=== PATIENT | female | born 1960 | race Caucasian/White ===

== ENCOUNTER 2017-06-23 18:58 | Inpatient (IN) | payer BC ==
[~2017-06-23] VITALS: Ht 170.2 cm; Wt 114.2 kg
--- NOTE | ~2017-06-23 | EC ---
PATIENT:CAMILA ADAN DATE OF SERVICE: 06/23/17 SEX: F MEDICAL RECORD: [id number] DATE OF : 56 LOCATION:[facility] AGE OF PATIENT: 57 ADMISSION DATE: 06/23/17 REFERRING PHYSICIAN: INTERPRETING PHYSICIAN: NIECY MEDINA MD ECHOCARDIOGRAM REPORT ECHO CHARGES 4 ECHO COMPLETE CLINICAL DIAGNOSIS: EDEMA/MORRELL ECHOCARDIOGRAPHIC MEASUREMENTS (adult normal given) AC root (d.<3.7cm) 3.7 cm LV Septum d (<1.2 cm> 1.7 cm Valve Excursion 2.1 cm LV Septum (systole) 1.8 cm Left Atria (s.<4.0cm> 4.0 cm LVPW d(<1.2cm) 1.6 cm RV (d.<2.3cm) 3.8 cm LVPW (sytole) 2.0 cm LV diastole(<5.6CM) 5.3 cm MV E-F(>70mm/sec) cm LV systole 3.5 cm LVOT Diameter 2.0 cm MV exc.(>10mm) 1.6 cm Est.ejection fraction (50-75%) % Pericardial Effusion N DOPPLER: LVIT cm/sec A 113 cm/sec E 145 cm/sec LA cm/sec RVSP 43 mmHg LVOT 161 cm/sec AOP1/2T m/s Asc. Ao 169 cm/sec RVOT 94 cm/sec RA cm/sec PA 136 cm/sec AV Gradient Peak 11.43mmHg AV Mean 7.38 mmHg AV Area 3.3 cm MV Gradient Peak 11.46mmHg MV Mean 4.12 mmHg MV Area cm COMMENTS: Rink Rat: 2 KEITH GILL Manager Emergency Department: 3 Dr. Kirby TAPE# PACS DATE OF SERVICE: 06/25/2017 Adequate 2D echo, color flow and spectral Doppler, M-Mode. Mild LVH. LV internal dimension is normal. Wall motion is normal. EF is greater than 55%. Aortic valve is tricuspid without evidence of stenosis on Doppler interrogation. Left atrium upper limits of normal at 4.0 cm. Mitral valve shows no prolapse. Mild MR. Right-sided chamber size is grossly normal. Mild TR. RV systolic pressure is elevated at 43, estimated at 43 mmHg via the continuity equation. TRANSINT:[id number] Voice Confirmation ID: [id number] DOCUMENT ID: [id number] ECHOCARDIOGRAM REPORT [id number] CAMILA ADAN,NIECY Mena MD at 1318 CC: [id number] DICTATION DATE: 06/25/171421 SUPERVISOR PAINTING: 06/25/17 1451 ADM IN [facility] [address] [place] [address]
--- NOTE | ~2017-06-23 | CN ---
PATIENT NAME:CAMILA ADAN MEDICAL RECORD: [id number] : 56 LOCATION:[facility]2306 ADMIT DATE: 06/23/17 ACCOUNT: [id number] CONSULTING PHYSICIAN: NIECY MEDINA MD REFERRING PHYSICIAN: CARMEN MCKEON MD DATE OF CONSULTATION: 06/25/2017 Cardiology Consultation HISTORY OF PRESENT ILLNESS: A 57-year-old lady with no known history of coronary artery disease, really no past medical history, admitted with some confusion, syncopal episode, found to have multilobar pneumonia, initially was hypoxic, placed on nonrebreather, noted to have elevated cardiac enzymes. She has had a quick peak and trend downwared downward consistent with demand ischemia versus true fixed obstructive disease. We are asked to see her concerning her cardiovascular status. PAST MEDICAL HISTORY: Includes history of chronic pain syndrome. No history of hypertension. No history of diabetes. ALLERGIES: CODEINE. SOCIAL HISTORY: Nonsmoker, nondrinker. She takes care of all of her ADLs, does assist with some care of mother. MEDICATIONS: Include Hudson 10/325 every day, Adipex 3.75 every day, Effexor 75 every day, Ambien 10 mg p.o. q.h.s. p.r.n., and Klonopin 1 mg t.i.d. REVIEW OF SYSTEMS: The patient reports easy bruising but reports no swollen glands. The patient reports no fever, no night sweats, no significant weight gain, no significant weight loss. No significant exercise tolerance. The patient reports no dry eyes, no irritation, no vision change. Patient reports no difficulty hearing and no ear pain. Patient reports no frequent nose bleeds or nose and sinus problems. Patient reports on arm pain on exertion. No shortness of breath while lying down. No history of heart murmur. Patient reports no cough, no wheezing or coughing up blood. Patient reports no abdominal pain, no vomiting. Normal appetite. No diarrhea and not vomiting blood. No nausea and no constipation. Patient reports no incontinence. No difficulty urinating. No hematuria. No increased frequency. Patient reports no muscle aches. No weakness, no arthralgias, no back pain. No swelling of the extremities. Patient reports no abnormal mole, no jaundice, no rashes. Reports no loss of consciousness. No weakness and no numbness. No seizures, dizziness, or headaches. The patient reports no depression, no sleep disturbance, feeling safe in a relationship and no alcohol abuse. Patient reports on fatigue. Reports no runny nose or sinus pressure. No itching, no hives, and no frequent sneezing. PHYSICAL EXAMINATION: GENERAL: Pleasant female in no acute distress, currently afebrile. VITAL SIGNS: Blood pressure 133/76, pulse 85 and regular. HEENT: Normocephalic, atraumatic. NECK: No JVD or bruits. HEART: Regular. LUNGS: Prolonged expiratory phase with some inspiratory and expiratory wheezes, but fair movement overall. CONSULT REPORT [id number] ADANCAMILA HOSKINS ABDOMEN: Soft, nontender. EXTREMITIES: Pulse well preserved 2+ with no edema. NEUROLOGIC: Grossly intact. IMPRESSION: Elevated cardiac enzymes, suspect more of a demand ischemia as opposed to fixed obstructive disease. Actually it is improving, defervesced quite nicely with current pneumonitis treatment. Could consider noninvasive workup as an outpatient after she recovers from current illness. TRANSINT:[id number] Voice Confirmation ID: [id number] DOCUMENT ID: [id number] NIECY MEDINA MD at 1318 CC: [id number] DICTATION DATE: 06/25/17 0845 FIELD REPRESENTATIVES DIRECTOR: 06/25/17 1111 ADM IN [place] [id number] [place] [id number]
[2017-06-23 19:45] LABS: BASOPHILS 0.2 % (0-2); EOSINOPHILS 1.1 % (0-7); HEMOGLOBIN 10.3 g/dL (12-16); IMMATURE GRANULOCYTES 0.5 % (0-5); LYMPHOCYTES 21.2 % (15-50); MCH 25.9 pg (26.0-34.0); MCHC 31.2 g/dL (31.0-37.0); MCV 82.9 fL (80.0-100.0); MONOCYTES 9.1 % (2-11); NEUTROPHILS 67.9 % (40-80); RBC 3.98 10x6/uL (4.00-5.40); RDW 16.9 % (11.5-14.5); WBC 8.3 10x3/uL (4.8-10.8)
[2017-06-23 19:48] LABS: PLATELET COUNT 125 10x3/uL (130-400)
[2017-06-23 20:01] LABS: ALBUMIN 3.1 g/dL (3.4-5.0); ANION GAP 15.7 mmol/L (8-16); BILIRUBIN - TOTAL 0.23 mg/dL (0.2-1.3); CALCIUM 9.3 mg/dL (8.5-10.1); CARBON DIOXIDE 22.4 mmol/L (21.0-32.0); CREATININE - SERUM 1.3 mg/dL (0.6-1.3); POTASSIUM - SERUM 4.1 mmol/L (3.5-5.1); PROTEIN - SERUM 6.7 g/dL (6.4-8.2)
[2017-06-23 20:18] LABS: TROPONIN-I 0.735 ng/mL (0.000-0.060)
[2017-06-23] MEDS ORDERED: AMBIEN10 MG PO (22:17)
[2017-06-23] MEDS ORDERED: HYDROCODONE-APA1 TAB PO (22:18)
[2017-06-23] MEDS ORDERED: KLONOPIN1 MG PO (22:19)
[2017-06-23] MEDS ORDERED: EFFEXOR75 MG PO (22:19)
[2017-06-23] MEDS ORDERED: ADIPEX-P37.5 MG PO (22:21)
[2017-06-23 22:39] VITALS: BMI 31.4
[2017-06-24] VITALS (12 sets, daily range): BP systolic 112–150; BP diastolic 56–72; Ht 170.2 cm; Wt 114.2 kg
[2017-06-24 08:45] LABS: HEMATOCRIT 31.5 % (36.0-48.0); MCH 26.2 pg (26.0-34.0); MCHC 31.7 g/dL (31.0-37.0); MCV 82.5 fL (80.0-100.0); MEAN PLATELET VOLUME 10.8 fL (7.4-10.4); PLATELET COUNT 140 10x3/uL (130-400); RBC 3.82 10x6/uL (4.00-5.40); RDW 17.3 % (11.5-14.5); WBC 9.5 10x3/uL (4.8-10.8)
[2017-06-24 09:06] LABS: LYMPHOCYTES 15 % (15-50); MONOCYTES 6 % (2-11); NEUTROPHILS 77 % (40-80); PLATELET ESTIMATE NORMAL
[2017-06-24 09:30] LABS: ANION GAP 19.7 mmol/L (8-16); CALCIUM 8.9 mg/dL (8.5-10.1); CARBON DIOXIDE 19.1 mmol/L (21.0-32.0); CREATININE - SERUM 1.1 mg/dL (0.6-1.3); POTASSIUM - SERUM 3.8 mmol/L (3.5-5.1)
[2017-06-24 17:43] LABS: APPEARANCE CLEAR (CLEAR); BILIRUBIN NEGATIVE (NEGATIVE); COLOR YELLOW (YELLOW); GLUCOSE NEGATIVE (NEGATIVE); KETONE NEGATIVE (NEGATIVE); NITRITE NEGATIVE (NEGATIVE); PROTEIN NEGATIVE (NEGATIVE); UROBILINOGEN NORMAL (NORMAL)
[2017-06-24 19:14] LABS: TROPONIN-I 0.835 ng/mL (0.000-0.060)
[2017-06-24 19:14] LABS: CKMB 2.3 U/L (0.0-3.6)
[2017-06-25] VITALS (23 sets, daily range): BP systolic 128–183; BP diastolic 63–94
[2017-06-25 04:32] LABS: BASOPHILS 0 % (0-2); EOSINOPHILS 0.1 % (0-7); HEMATOCRIT 29.5 % (36.0-48.0); HEMOGLOBIN 9.5 g/dL (12-16); IMMATURE GRANULOCYTES 0.5 % (0-5); LYMPHOCYTES 18.7 % (15-50); MCH 25.9 pg (26.0-34.0); MCHC 32.2 g/dL (31.0-37.0); MEAN PLATELET VOLUME 10.8 fL (7.4-10.4); MONOCYTES 11.5 % (2-11); NEUTROPHILS 69.2 % (40-80); PLATELET COUNT 142 10x3/uL (130-400); RBC 3.67 10x6/uL (4.00-5.40); RDW 17.3 % (11.5-14.5); WBC 7.9 10x3/uL (4.8-10.8)
[2017-06-25 04:45] LABS: MCV 80.4 fL (80.0-100.0)
[2017-06-25 04:55] LABS: % SATURATION 6 % (15-55); IRON 22 ug/dl (35-150); TOTAL IRON BIND CAPACITY 352 ug/dl (260-445); UNSAT IRON BIND CAPACITY 330 ug/dl (150-375)
[2017-06-25 05:15] LABS: ALBUMIN 2.7 g/dL (3.4-5.0); BILIRUBIN - TOTAL 0.75 mg/dL (0.2-1.3); CREATININE - SERUM 0.9 mg/dL (0.6-1.3); MAGNESIUM - SERUM 1.8 mg/dL (1.8-2.4); PHOSPHOROUS 1.7 mg/dL (2.5-4.9); PROTEIN - SERUM 6.8 g/dL (6.4-8.2)
[2017-06-25 05:21] LABS: ANION GAP 13.4 mmol/L (8-16); CARBON DIOXIDE 24.7 mmol/L (21.0-32.0); POTASSIUM - SERUM 3.1 mmol/L (3.5-5.1); TROPONIN-I 0.642 ng/mL (0.000-0.060)
[2017-06-26] VITALS (15 sets, daily range): BP systolic 138–179; BP diastolic 67–99
[2017-06-26 04:35] LABS: BASOPHILS 0.2 % (0-2); EOSINOPHILS 0.5 % (0-7); HEMATOCRIT 31.3 % (36.0-48.0); IMMATURE GRANULOCYTES 0.2 % (0-5); MCH 25.8 pg (26.0-34.0); MCHC 31.9 g/dL (31.0-37.0); MCV 80.9 fL (80.0-100.0); MEAN PLATELET VOLUME 10.7 fL (7.4-10.4); MONOCYTES 11.2 % (2-11); NEUTROPHILS 65.9 % (40-80); PLATELET COUNT 150 10x3/uL (130-400); RBC 3.87 10x6/uL (4.00-5.40); RDW 17.6 % (11.5-14.5); WBC 8.2 10x3/uL (4.8-10.8)
[2017-06-26 05:01] LABS: ANION GAP 14.3 mmol/L (8-16); CALCIUM 9.1 mg/dL (8.5-10.1); CARBON DIOXIDE 23.5 mmol/L (21.0-32.0); CREATININE - SERUM 0.9 mg/dL (0.6-1.3)
[2017-06-26 05:02] LABS: PHOSPHOROUS 2.4 mg/dL (2.5-4.9)
[2017-06-26 05:03] LABS: POTASSIUM - SERUM 2.8 mmol/L (3.5-5.1)
[2017-06-27 02:44] LABS: BASOPHILS 0.2 % (0-2); EOSINOPHILS 1.2 % (0-7); HEMATOCRIT 30.6 % (36.0-48.0); HEMOGLOBIN 9.8 g/dL (12-16); IMMATURE GRANULOCYTES 0.6 % (0-5); LYMPHOCYTES 21.8 % (15-50); MCH 26.1 pg (26.0-34.0); MCV 81.4 fL (80.0-100.0); MONOCYTES 11.9 % (2-11); NEUTROPHILS 64.3 % (40-80); PLATELET COUNT 169 10x3/uL (130-400); RBC 3.76 10x6/uL (4.00-5.40); RDW 17.6 % (11.5-14.5); WBC 8.2 10x3/uL (4.8-10.8)
[2017-06-27 02:52] LABS: CALC OSMOLALITY 271 mosm/kg (275-300); CALCIUM 8.8 mg/dL (8.5-10.1); CARBON DIOXIDE 24.5 mmol/L (21.0-32.0); CHLORIDE - SERUM 105 mmol/L (98-107); CREATININE - SERUM 0.7 mg/dL (0.6-1.3); GLUCOSE 106 mg/dL (74-106); MAGNESIUM - SERUM 1.6 mg/dL (1.8-2.4); POTASSIUM - SERUM 3.5 mmol/L (3.5-5.1); SODIUM 137 mmol/L (136-145); UREA NITROGEN 7 mg/dL (7-18); VANCOMYCIN - TROUGH 14.9 ug/mL (10.0-20.0); eGFR NON AFRICAN AMERICAN > 90 mL/min (90-120)
[2017-06-27 02:55] LABS: PHOSPHOROUS 3.6 mg/dL (2.5-4.9)
[2017-06-27 03:00] VITALS: BP 140/91
[2017-06-27 07:00] VITALS: BP 158/93
[2017-06-27 14:00] VITALS: BP 154/96
[2017-06-27 19:00] VITALS: BP 162/86
[2017-06-28 04:00] VITALS: BP 99/64
[2017-06-28 07:23] LABS: CALC OSMOLALITY 277 mosm/kg (275-300); CALCIUM 9.6 mg/dL (8.5-10.1); CARBON DIOXIDE 22.6 mmol/L (21.0-32.0); CHLORIDE - SERUM 105 mmol/L (98-107); CREATININE - SERUM 0.8 mg/dL (0.6-1.3); GLUCOSE 116 mg/dL (74-106); POTASSIUM - SERUM 3.7 mmol/L (3.5-5.1); SODIUM 139 mmol/L (136-145); eGFR NON AFRICAN AMERICAN 78 mL/min (90-120)
[2017-06-28 07:24] LABS: UREA NITROGEN 9 mg/dL (7-18)
[2017-06-28 07:25] LABS: BASOPHILS 0.3 % (0-2); EOSINOPHILS 2.4 % (0-7); HEMATOCRIT 31.9 % (36.0-48.0); HEMOGLOBIN 10.2 g/dL (12-16); IMMATURE GRANULOCYTES 0.9 % (0-5); LYMPHOCYTES 24.8 % (15-50); MCH 26.2 pg (26.0-34.0); MCV 81.8 fL (80.0-100.0); MEAN PLATELET VOLUME 10.6 fL (7.4-10.4); MONOCYTES 11.2 % (2-11); NEUTROPHILS 60.4 % (40-80); PLATELET COUNT 171 10x3/uL (130-400); WBC 6.8 10x3/uL (4.8-10.8)
[2017-06-28 08:17] VITALS: BP 178/85
[2017-06-28] MEDS ORDERED: LISINOPRIL10 MG PO (11:27)
[2017-06-28] MEDS ORDERED: ASPIRIN81 MG PO (11:28)
[2017-06-28] MEDS ORDERED: LEVAQUIN750 MG PO (11:29)
[2017-06-28 12:45] VITALS: BP 191/83
[2017-06-28 16:51] VITALS: BP 179/89
[2017-06-28 20:00] VITALS: BP 174/86
[2017-06-29 03:40] LABS: BASOPHILS 0.5 % (0-2); EOSINOPHILS 2.7 % (0-7); HEMATOCRIT 32.2 % (36.0-48.0); HEMOGLOBIN 10.2 g/dL (12-16); IMMATURE GRANULOCYTES 1.5 % (0-5); MCHC 31.7 g/dL (31.0-37.0); MCV 81.9 fL (80.0-100.0); MEAN PLATELET VOLUME 10.5 fL (7.4-10.4); MONOCYTES 9.7 % (2-11); NEUTROPHILS 61.6 % (40-80); PLATELET COUNT 175 10x3/uL (130-400); RBC 3.93 10x6/uL (4.00-5.40); RDW 18.1 % (11.5-14.5); WBC 8.1 10x3/uL (4.8-10.8)
[2017-06-29 04:00] VITALS: BP 167/81
[2017-06-29 04:23] LABS: ANION GAP 13.5 mmol/L (8-16); CALCIUM 10.5 mg/dL (8.5-10.1); CARBON DIOXIDE 25.7 mmol/L (21.0-32.0); CREATININE - SERUM 0.9 mg/dL (0.6-1.3); POTASSIUM - SERUM 3.2 mmol/L (3.5-5.1); VANCOMYCIN - PEAK 18.5 ug/mL (18.0-26.0)
[2017-06-29 08:16] VITALS: BP 119/73
[2017-06-29] MEDS ORDERED: VIBRAMYCIN 100100 MG PO (11:24)
[2017-06-29] MEDS ORDERED: IPRAT-ALBUT 0.5-3 ML UPD (16:36)
== END 2017-06-29 12:39 | disposition home or self-care (01) | DRG 871 ==
LOC: D.ER 18:58 → D.ICU 20:53 → D.M2 20:53 → D.MS 20:53 → D.ICU 06-24 15:17 → D.MS 06-27 19:55
PROVIDERS: Emergency Medicine; Internal Medicine Nephrology; Internal Medicine Pulmonary Disease
DX: A41.9 Sepsis, unspecified organism (principal); G93.41 Metabolic encephalopathy; J96.01 Acute respiratory failure with hypoxia; J15.212 Pneumonia due to Methicillin resistant Staphylococcus aureus; I24.8 Other forms of acute ischemic heart disease; R04.2 Hemoptysis; G89.4 Chronic pain syndrome; I08.1 Rheumatic disorders of both mitral and tricuspid valves; D50.9 Iron deficiency anemia, unspecified; E87.6 Hypokalemia; E83.39 Other disorders of phosphorus metabolism; F32.9 Major depressive disorder, single episode, unspecified; F41.9 Anxiety disorder, unspecified; R55 Syncope and collapse; I27.20 Pulmonary hypertension, unspecified; E83.42 Hypomagnesemia

== ENCOUNTER 2018-01-06 13:15 | Inpatient (IN) | payer OTHER ==
[~2018-01-06] VITALS: Ht 170.2 cm; Wt 102.3 kg
--- NOTE | ~2018-01-06 | HEMODYNAMI ---
PATIENT:CAMILA ADAN MEDICAL RECORD: [id number] : 56 LOCATION:[facility]29 ADMISSION DATE: 01/06/18 Generatedon:01/09/201812:55 Patient name: CAMILA ADAN Patient #: [id number] SSN: : 1960 Date of study: 01/09/2018 Page: Of Hemodynamic Procedure Report Patient Data Patient Demographics Procedure consent was obtained First Name: CAMILA Gender: Female Last Name: LOCO : 1960 Patient #: [id number] Age: 57 year(s) Race: Unknown Additional ID: [id number] Contact details [address]: [address] [place] [address] State: [place] City: [place] Zip code: [address] Past Medical History Allergies: No known allergies Admission Admission Data Admission Date: 01/06/2018 Admission Time: 18:20 Room #: D.2229 Procedure Procedure Types Cath Procedure Diagnostic Procedure LHC LHC w/Coronaries FFR/IVUS Intra-Coronary IVUS Initial Sedation Charges Moderate Sedation up to 30 minutes PCI Procedure Coronary Stent Coronary Stent Initial Procedure Description Procedure Date Procedure Date: 01/09/2018 Procedure Start Time: 12:17 Procedure End Time: 12:54 Procedure Staff Name Function Chapo Ramirez MD Performing Physician Jeremiah Summers RN Nurse Derick Anderson RT Scrub Ushaalivia Barajas RT Monitor Procedure Data Cath Procedure Fluoroscopy Diagnostic fluoroscopy Total fluoroscopy Time: time: 13.4 min 13.4 min Diagnostic fluoroscopy Total fluoroscopy dose: dose: 1912 mGy 1912 mGy Contrast Material Contrast Material Type Amount (ml) Isovue 300 210 Entry Location Entry Primary Successful Side Size Upsize Upsize Entry Closure Succes sful Closure Location (Fr) 1 (Fr) 2 (Fr) Remarks Device Remarks Femoral 5 Fr 6 Fr Exoseal artery Short Estimated blood loss: 10 ml Diagnostic catheters Device Type Used For End Catheter Placement MULTIPACK Pigtail 5 Fr LV Angiography catheter MULTIPACK JL 4.0 5Fr Left Coronary catheter Angiography MULTIPACK 3DRC 5Fr Right Coronary catheter Angiography Procedure Complications No complications Procedure Medications Medication Administration Route Dosage 0.9% NaCl I.V. 100 ml/hr Oxygen etCO2 Nasal cannula 2 l/min Heparin Flush Bag added to field 2 bags (1000units/500ml NS) Lidocaine 2% added to field 20 Versed I.V. 2 mg Fentanyl I.V. 100 mcg Versed I.V. 1 mg Heparin Bolus I.V. 4000 units Integrilin (Bolus I.V. 9 ml 2mg/ml) Integrilin (Bolus wasted 1 ml 2mg/ml) Plavix P.O. 600 mg Hemodynamics Rest Heart Rate: 81 (bpm) Pressure Samples Time Site Value (mmHg) Purpose Heart Use Rate(bpm) 12:17 AO (0) Snapshot 81 12:19 AO 114/72(79) Snapshot 82 Snapshots Pre Cath Intra NCS Post Cath Vital Signs Time Heart Resp SPO2 etCO2 NIBP (mmHg) Rhythm Pain Sedation Rate (ipm) (%) (mmHg) Status Level (bpm) 12:17:23 81 18 94 34.3 111/66(0) NSR 0 (11) 10(A) , No pain 12:21:20 80 17 94 33.6 117/72(97) NSR 0 (11) 10(A) , No pain 12:25:59 82 18 94 35 128/77(95) NSR 0 (11) 10(A) , No pain 12:30:44 83 14 94 34.3 119/52(102) NSR 0 (11) 9(A) , No pain 12:35:24 84 10 94 35.8 123/65(97) NSR 0 (11) 9(A) , No pain 12:40:42 84 9 95 35.1 128/71(97) NSR 0 (11) 9(A) , No pain 12:45:24 83 12 94 34.3 125/72(91) NSR 0 (11) 9(A) , No pain 12:50:07 84 10 96 32.8 118/66(84) NSR 0 (11) 10(A) , No pain 12:54:50 83 11 95 31.3 128/67(96) NSR 0 (11) 10(A) , No pain Medications Time Medication Route Dose Verified Delivered Reason Notes Effectiveness by by 12:11:11 0.9% NaCl I.V. 100 Jeremiah Jeremiah Per physician ml/hr Melina Summers RN RN 12:11:21 Oxygen etCO2 2 Jeremiah Jeremiah Per physician Nasal l/min Melina Summers cannula RN RN 12:11:35 Heparin Flush added 2 Jeremiah Jeremiah used for Bag to bags Melina Summers procedure (1000units/500ml field RN RN NS) 12:11:46 Lidocaine 2% added 20ml Jeremiah Jeremiah for local to vial Melina Summers anesthetic field RN RN 12:15:41 Versed I.V. 2 mg Jeremiah Jeremiah for sedation Melina Summers RN RN 12:15:48 Fentanyl I.V. 100 Jeremiah Jeremiah for sedation mcg Melina Summers RN RN 12:17:51 Versed I.V. 1 mg Jeremiah Jeremiah for sedation Melina Summers RN RN 12:28:50 Heparin Bolus I.V. 4000 Jeremiah Jeremiah for units Melina Summers anticoagulation RN RN 12:29:04 Integrilin I.V. 9 ml Jeremiah Jeremiah for (Bolus 2mg/ml) Melina Summers antiplatelet RN RN therapy 12:29:15 Integrilin wasted 1 ml Jeremiah Jeremiah to sharp's (Bolus 2mg/ml) Melina Summers RN RN 12:49:11 Plavix P.O. 600 Jeremiah Jeremiah for mg Melina Summers antiplatelet RN RN therapy Procedure Log Time Note 11:30:50 Time tracking: Regular hours (M-F 7:00 - 5:00) 11:30:55 Plan of Care:Hemodynamics will remain stable., Cardiac rhythm will remain stable., Comfort level will be maintained., Respiratory function will remain adequate., Patient/ family verbilizes understanding of procedure., Procedure tolerated without complication., Recovers from procedure without complications.. 11:42:23 Usha Counts RT(R) sent for patient. Start room use. 11:54:09 Patient received from Med/Surg to CCL 1 Alert and oriented. Tansferred to table in Supine position. 11:54:11 Warm blankets applied, and tracy hugger turned on for patient comfort. 11:54:12 Correct patient and procedure confirmed by team. 11:54:13 Pre-procedure instructions explained to patient. 11:54:14 Pre-op teaching completed and patient verbalized understanding. 11:54:17 Signed procedure consent form obtained from patient. 11:54:19 ECG and BP/O2 sat monitors applied to patient. 12:05:28 Vital chart was started 12:05:29 Full Disclosure recording started 12:05:33 Rhythm: sinus rhythm 12:06:39 H&P Date Dictated: 01/09/2018 Within 30 days and on chart.. 12:06:43 Family in patients room. 12:06:46 Patient NPO since Midnight. 12:06:51 Patient allergic to No known allergies 12:06:53 Is the patient allergic to Iodine/contrast media? No. 12:07:23 Is patient on blood thinner?Yes 12:07:25 ACC The patient was administered the following blood thiners within the last 24 hours: ACCPlavix 12:07:28 Patient diabetic? No. 12:07:43 Previous problem with sedation/anesthesia? Yes Hard to sedate 12:07:45 Snore? Yes 12:07:46 Sleep apnea? No 12:07:47 Deviated septum? No 12:07:48 Opens mouth fully? Yes 12:07:49 Sticks out tongue? Yes 12:07:52 Airway obstruction? Yes COPD 12:07:55 Dentures? Yes OUT 12:08:24 Pre procedure: right dorsailis pedis pulse 2+ Normal; easily identifiable; not easily obliterated 12:08:28 Modified Marshall's test Ulnar > 7 seconds. 12:08:56 Patient pain scale 0/10 ?. 12:09:10 IV patent on arrival in right hand with 0.9% NaCl at KVO. 12:09:12 Lab results completed and on chart. 12:09:15 Right groin area was prepped with chlora-prep and draped in sterile fashion 12:09:16 Alarms reviewed by R. N. 12:09:16 Sharps counted by scrub and verified by R.N. 12:09:19 Use device set Femoral Dx 12:09:20 ACIST Syringe (39508) opened to sterile field. 12:09:20 Bag Decanter (2002) opened to sterile field. 12:09:21 Medline Cath Pack (LDDM61423) opened to sterile field. 12:09:21 DIAGNOSTIC WIRE .035 260cm J wire (398986) opened to sterile field. 12:09:22 ACIST Hand Control (08074) opened to sterile field. 12:09:23 ACIST Manifold (32957) opened to sterile field. 12:09:24 DIAGNOSTIC Multipack 5Fr catheter set (YL7481) opened to sterile field. 12:09:25 Tegaderm 4 x 4 (1626W) opened to sterile field. 12:09:26 SHEATH Prelude 5Fr 0.035 (BZL-7V-11-035) opened to sterile field. 12:11:11 0.9% NaCl 100 ml/hr I.V. was administered by Jeremiah Summers RN; Per physician; 12:11:21 Oxygen 2 l/min etCO2 Nasal cannula was administered by Jeremiah Summers RN; Per physician; 12:11:35 Heparin Flush Bag (1000units/500ml NS) 2 bags added to field was administered by Jeremiah Summers RN; used for procedure; 12:11:42 Physician paged 12:11:46 Lidocaine 2% 20ml vial added to field was administered by Jeremiah Summers RN; for local anesthetic; 12:14:09 Vital chart was stopped 12:14:11 Vital chart was started 12:14:21 Zero performed for pressure channel P1 12:14:50 Final Timeout: patient, procedure, and site verified with staff and physician. All members of the team are in agreement. 12:14:52 Right groin site verified by team. 12:14:54 Physical assessment completed. ASA score P 2 - A patient with mild systemic disease as per Chapo Ramirez MD. 12:14:58 Sedation plan: IV Moderate Sedation Medication:Versed, Fentanyl 12:15:41 Versed 2 mg I.V. was administered by Jeremiah Summers RN; for sedation; 12:15:48 Fentanyl 100 mcg I.V. was administered by Jeremiah Summers RN; for sedation; 12:17:18 Procedure started. 12:17:22 Local anesthetic to right femoral artery with Lidocaine 2% by Chapo Ramirez MD.INITIAL ACCESS ONLY 12:17:51 Versed 1 mg I.V. was administered by Jeremiah Summers RN; for sedation; 12:18:05 Baseline sample Acquired. 12:18:18 A 5 Fr sheath was inserted into the Femoral artery 12:18:28 A MULTIPACK Pigtail 5 Fr catheter was advanced over the wire and used for LV Angiography. 12:18:55 LV gram done using LUNDBERG 12:18:57 Injector settings: Ml/sec: 10, Volume: 20, 12:18:59 LV hemodynamics recorded. 12:19:02 EF : 60 % 12:19:09 Catheter removed. 12:19:14 A MULTIPACK JL 4.0 5Fr catheter was advanced over the wire and used for Left Coronary Angiography. 12:20:25 Vital chart was stopped 12:20:29 Vital chart was started 12:20:39 Catheter removed. 12:20:54 A MULTIPACK 3DRC 5Fr catheter was advanced over the wire and used for Right Coronary Angiography. 12:21:50 Catheter removed. 12:22:00 Use device set Lumi [place] PCI 12:22:01 SHEATH Prelude 6Fr 0.035 (YUY-6T-51-035) opened to sterile field. 12:22:05 INFLATOR Merit BasixCompak (BN5565) opened to sterile field. 12:22:11 CHOICE PT Extra Support 182cm wire ([id number]) opened to sterile field. 12:22:56 [place] Cheesh-Na Eagleye IVUS Catheter (78790F) opened to sterile field. 12:23:07 GUIDE 6FR XBLAD 3.5 catheter ([id number]) opened to sterile field. 12:23:16 Sheath upsized to a 6 Fr Short. 12:23:57 6 Fr XBLAD 3.5 guide catheter was inserted over the wire 12:24:12 CHOICE PT ES wire advanced. 12:25:35 IVUS catheter advanced over wire. 12:25:37 IVUS pass to LAD lesion performed. 12:26:43 IVUS catheter removed over wire. 12:28:45 Place stent Inflation Number: 1 A INTEGRITY RX 3.0 x 12 stent ([id number]) was prepped and advanced across the Prox LAD. The stent was deployed at 13 HUGO for 0:17 (min:sec). 12:28:50 Heparin Bolus 4000 units I.V. was administered by Jeremiah Summers RN; for anticoagulation; 12:29:04 Integrilin (Bolus 2mg/ml) 9 ml I.V. was administered by Jeremiah Summers RN; for antiplatelet therapy; 12:29:15 Integrilin (Bolus 2mg/ml) 1 ml wasted was administered by Jeremiah Summers RN; to sharp's; 12:29:20 Stent catheter was removed intact over wire. 12:30:37 Place stent Inflation Number: 2 A INTEGRITY RX 3.0 x 15 stent ([id number]) was prepped and advanced across the Prox LAD. The stent was deployed at 11 HUGO for 0:10 (min:sec). 12:33:38 Stent catheter was removed intact over wire. 12:40:14 The INTEGRITY RX 3.0 x 09 stent ([id number]) was advanced then removed because of failure to cross lesion 12:41:38 NEW CHOICE PT ES wire advanced. 12:42:58 Inflate balloon Inflation number: 3 A EMERGE OTW 3.0 x 12 balloon ([id number]) was prepped and advanced across the Prox LAD, then inflated to 9 HUGO for 0:08 (min:sec). 12:43:08 Inflation number: 4 The EMERGE OTW 3.0 x 12 balloon ([id number]) was reinflated across the Prox LAD, to 9 HUGO for 0:05 (min:sec). 12:43:22 Inflation number: 5 The EMERGE OTW 3.0 x 12 balloon ([id number]) was reinflated across the Prox LAD, to 9 HUGO for 0:04 (min:sec). 12:43:47 Balloon removed over the wire. 12:46:22 Place stent Inflation Number: 6 A INTEGRITY OTW 3.0 X 18 stent ([id number]) was prepped and advanced across the Prox LAD. The stent was deployed at 9 HUGO for 0:06 (min:sec). 12:47:37 Stent catheter was removed intact over wire. 12:47:38 Wire removed. 12:47:39 Guide catheter removed. 12:48:03 Sheath removed intact; hemostasis achieved with Exoseal to the Femoral artery. 12:48:04 Procedure ended.(Physican Out) 12:48:21 Fluoroscopy time 13.40 minutes. 12:48:25 Flurop Dose total: 2 12:48:25 Fluoroscopy dose: 1912 mGy 12:48:52 Contrast amount:Isovue 300 210ml. 12:48:54 Sharps counted by scrub and verified by R.N. 12:48:55 Insertion/operative site no bleeding no hematoma. 12:49:07 Post-op/insertion site Right Femoral artery dressed using a 4 x 4 and Tegaderm. 12:49:11 Plavix 600 mg P.O. was administered by Jeremiah Summers RN; for antiplatelet therapy; 12:49:12 Post right femoral artery:stable, clean and dry 12:49:14 Post Procedure Pulses reassessed and unchanged 12:49:17 Post-procedure physical assessment completed. ASA score P 2 - A patient with mild systemic disease as per Chapo Ramirez MD. 12:49:20 Post procedure rhythm: sinus rhythm 12:49:25 Estimated blood loss: 10 ml 12:49:26 Post procedure instruction explained to patient.Patient verbalizes understanding. 12:49:27 Patient needs reinforcement of post procedure teaching. 12:49:37 Procedure type changed to Cath procedure, Diagnostic procedure, LHC, LHC w/Coronaries, FFR/IVUS, Intra-Coronary IVUS Initial, Sedation Charges, Moderate Sedation up to 30 minutes, PCI procedure, Coronary Stent, Coronary Stent Initial 12:50:12 Procedure Complication : No complications 12:50:14 See physician's report for complete and final results. 12:52:43 CHOICE PT Extra Support J 300cm guide wire ([id number]) opened to sterile field. 12:53:34 EXOSEAL 6Fr (EX600) opened to sterile field. 12:54:31 Procedure and supply charges have been captured, reviewed, submitted and are correct. 12:54:34 Report given to PCU. 12:54:38 Patient transfered to PCU with Bed. 12:54:47 Procedure ended. 12:54:47 Full Disclosure recording stopped 12:55:41 End room use (Document Last) 12:55:57 Vital chart was stopped Intervention Summary Intervention Notes Time ActionType Lesion and Equipment Action# Pressure Duration Attributes Used 12:28:45 Place stent Prox LAD INTEGRITY RX 1 13 00:17 3.0 x 12 stent ([id number]) 12:30:37 Place stent Prox LAD INTEGRITY RX 2 11 00:10 3.0 x 15 stent ([id number]) 12:40:14 Discard INTEGRITY RX Stent 3.0 x 09 stent ([id number]) 12:42:58 Inflate Prox LAD EMERGE OTW 3 9 00:08 balloon 3.0 x 12 balloon ([id number]) 12:43:08 Reinflate Prox LAD EMERGE OTW 4 9 00:05 balloon 3.0 x 12 balloon ([id number]) 12:43:22 Reinflate Prox LAD EMERGE OTW 5 9 00:04 balloon 3.0 x 12 balloon ([id number]) 12:46:22 Place stent Prox LAD INTEGRITY 6 9 00:06 OTW 3.0 X 18 stent ([id number]) Device Usage Item Name Manufacture Quantity Catalog Number Hospital Part Current Minimal Lot# / Charge Number Stock Stock Serial# Code ACIST Syringe Acist 1 44524 150101 879885 [id number] 20 (63436) Medical Systems Inc Bag Decanter Microtek 1 904347 89385 998628 5 () Medical Inc. Medline Cath Cardinal 1 [id number] 791433 81640 319941 5 Pack Health ([id number]) DIAGNOSTIC WIRE St Kelechi 1 034572 728774 037155 183723 30 .035 260cm J wire (115543) ACIST Hand Acist 1 42099 894403 050005 315893 5 Control (58668) Medical Systems Inc ACIST Manifold Acist 1 19043 982665 351106 155314 5 (05091) Medical Systems Inc DIAGNOSTIC Cardinal 1 RZ2794 082388 73919 985793 30 Multipack 5Fr Health catheter set (RC4219) Tegaderm 4 x 4 3M 1 1626W 893435 903398 864541 5 (1626W) SHEATH Prelude Merit 1 NMG-1C-47-035 513522 453059 668677 5 5Fr 0.035 Medical (XTP-2A-81-035) MULTIPACK Cardinal 1 400182 5 Pigtail 5 Fr Health catheter MULTIPACK JL Cardinal 1 870799 5 4.0 5Fr Health catheter MULTIPACK 3DRC Cardinal 1 825863 5 5Fr catheter Health SHEATH Prelude Merit 1 UOS-7N-86-35 566252 4647033 775088 5 6Fr 0.035 Medical (DMP-6E-34-035) INFLATOR Merit Merit 1 PV0940 160355 608318 373858 15 DeskMetrics ([id number]) CHOICE PT Extra Troy 1 [id number] 565475 602257 413644 5 Support 182cm Scientific wire ([id number]) Richmond Richmond 1 91666R 184716 589116 164439 8 Cheesh-[place]e IVUS Catheter (52033N) GUIDE 6FR XBLAD Cardinal 1 [id number] 358809 330636 237032 10 3.5 catheter Health ([id number]) INTEGRITY RX Medtronic 1 [id number] 994796 858083 317365 5 [id number] 3.0 x 12 stent ([id number]) INTEGRITY RX Medtronic 1 [id number] 142344 573667 630322 5 [id number] 3.0 x 15 stent ([id number]) INTEGRITY RX Medtronic 1 [id number] 112338 068042 392117 5 [id number] 3.0 x 09 stent ([id number]) EMERGE OTW 3.0 Troy 1 [id number] 888910 693564 254364 5 [id number] x 12 balloon Scientific ([id number]) INTEGRITY OTW Medtronic 1 [id number] 709753 810530 7 [id number] 3.0 X 18 stent ([id number]) CHOICE PT Extra Troy 1 [id number] 121680 077587 831821 5 Support J 300cm Scientific guide wire ([id number]) EXOSEAL 6Fr Cardinal 1 EX600 070307 547822 980531 10 (EX600) Health Signature Audit [place] Stage Time Signature Unsigned Intra-Procedure 01/09/2018 Usha 12:55:54 PM Counts RT(R) Signatures Monitor : Usha Signature : Counts RT Date : Time : [address] [address]
--- NOTE | ~2018-01-06 | EC ---
PATIENT:CAMILA ADAN DATE OF SERVICE: 01/06/18 SEX: F MEDICAL RECORD: [id number] DATE OF : 56 LOCATION:D.M2 D.213 AGE OF PATIENT: 57 ADMISSION DATE: 01/06/18 REFERRING PHYSICIAN: INTERPRETING PHYSICIAN: AMERICO BALDERAS MD ECHOCARDIOGRAM REPORT ECHO CHARGES 4 ECHO COMPLETE Date: 01/08 CLINICAL DIAGNOSIS: CHF ECHOCARDIOGRAPHIC MEASUREMENTS (adult normal given) AC root (d.<3.7cm) 3.4 cm LV Septum d (<1.2 cm> 1.2 cm Valve Excursion 1.9 cm LV Septum (systole) 2.0 cm Left Atria (s.<4.0cm> 3.8 cm LVPW d(<1.2cm) 1.2 cm RV (d.<2.3cm) 1.5 cm LVPW (sytole) 1.8 cm LV diastole(<5.6CM) 5.6 cm MV E-F(>70mm/sec) cm LV systole 3.8 cm LVOT Diameter 1.7 cm MV exc.(>10mm) cm Est.ejection fraction (50-75%) % DOPPLER: LVIT cm/sec A 56.0 cm/sec E 85.0 cm/sec LA cm/sec RVSP 24.0 mmHg LVOT 130 cm/sec AOP1/2T m/s Asc. Ao 150 cm/sec RVOT 100 cm/sec RA cm/sec PA 84.0 cm/sec AV Gradient Peak 9.0 mmHg AV Mean 4.7 mmHg AV Area 1.6 cm MV Gradient Peak 2.9 mmHg MV Mean 1.3 mmHg MV Area cm COMMENTS: ECHO WITH BUBBLE STUDY Steel Placer: Tamiko SANOE Building Dismantler: 3 Dr. Kirby TAPE# PACS Pericardial Effusion N DATE OF SERVICE: PROCEDURE: Echocardiogram with bubble study. FINDINGS: 1. Left ventricular chamber size is within normal limits. Left ventricular systolic function is normal. Overall ejection fraction estimated at 50% to 55%. 2. Left atrium, right atrium and right ventricular chamber sizes are within normal limits. 3. Valvular structures have normal structure and motion. ECHOCARDIOGRAM REPORT [id number] CAMILA AADN 4. Doppler interrogation reveals moderate mitral regurgitation, no other valvular insufficiency or stenosis. Pulmonary systolic pressure is estimated at 24 mmHg. 5. Bubble study was performed. No evidence of left to right or right to left shunt. TRANSINT:[id number] Voice Confirmation ID: [id number] DOCUMENT ID: [id number] AMERICO BALDERAS MD at 1325 CC: [id number] DICTATION DATE: 01/08/18 1541 [employer]ANT [employer]: 01/08/18 1549 DIS IN 01/10/18 [facility] [address] [place] [address]
--- NOTE | ~2018-01-06 | DS ---
PATIENT:CAMILA DAAN :56 MEDICAL RECORD: [id number] DISCHARGE SUMMARY ADMISSION DATE: 01/06/18 DISCHARGE DATE: 01/10/18 DATE OF ADMISSION: 01/06/2018. DATE OF DISCHARGE: 01/10/2018. ADMISSION DIAGNOSES: The patient admitted to the wrong service initially. She was admitted with a diagnosis of hypoxic respiratory failure, bilateral pneumonia, afebrile, depression, and anxiety. DISCHARGE DIAGNOSES: Coronary artery disease, non-Q-wave RI, coronary angiography with stent placement catheterization with stent placement to the LAD, hypertension, hyperlipidemia, hypoxic respiratory failure. CONSULTS: Dr. Magaña, pulmonology. Dr. Ramirez, cardiology. PROCEDURES: Echocardiogram: No significant abnormalities. CTA: Pulmonary edema, no PE. EKG showed on admission ST depression in lateral leads. Cardiac catheterization: 70+ percent occlusion LAD, complete resolution after stent placement. HOSPITAL COURSE: The patient was admitted as noted above actually to the wrong service. Review of records, when I was notified of her admission, showed ST depression on EKG. Cardiology was consulted by Dr. Magaña the night before. Enzymes were cycled, showed significantly elevated troponin. The patient then underwent successful cardiac catheterization. Symptoms have resolved. She is off oxygen, anxious to go home. She has been cleared by pulmonology and cardiology. Will follow up in the clinic in 10 days. DISCHARGE MEDICATIONS: Per med rec. PHYSICAL EXAMINATION: VITAL SIGNS ON DISCHARGE: Temperature 98.4, blood pressure 105/57, heart rate 81, respirations 16, O2 sats 93% room air. GENERAL: The patient is alert, oriented. HEART: Regular rate and rhythm. LUNGS: Clear. ABDOMEN: Soft. EXTREMITIES: Present times 4. NEUROLOGIC: Intact. SKIN: Warm and dry. No rash. DISCHARGE INSTRUCTIONS: Again, the patient will follow up with cardiology and pulmonology. Follow up with me in 10 days. Again, counseled on weaning off benzos and opiates from her previous physician. TRANSINT:[id number] Voice Confirmation ID: [id number] DOCUMENT ID: [id number] DISCHARGE SUMMARY REPORT [id number] CAMILA ADAN HANH RAI DO at 0826 CC: [id number] DICTATION DATE: 01/10/18 075 PAINT BOOTH OPERATOR: 01/10/18 1128 DIS IN 01/10/18 [facility] [address] [facility] [place] [address]
--- NOTE | ~2018-01-06 | OP ---
PATIENT NAME: CAMILA ADAN MEDICAL RECORD: [id number] :56 LOCATION:D.M2 D.2131 ADMISSION DATE:01/06/18 SURGEON: AMERICO BALDERAS MD DATE OF OPERATION: 01/09/2018 DATE OF SERVICE: 01/09/2018 PROCEDURES: 1. PTCA stent LAD. 2. Intravascular ultrasound. 3. Left heart catheterization. 4. Selective coronary angiography. 5. Left ventriculogram. INDICATION: Coronary artery disease, myocardial infarction. DESCRIPTION OF PROCEDURE: After informed consent was obtained and after a detailed description of the risks, benefits as well as alternative therapies, the patient elected to proceed with angiogram and angioplasty. The right femoral area was prepped and draped in normal sterile fashion. Right femoral artery was cannulated via modified Seldinger technique with placement of 6-Maltese sheath. All catheters exchanged through this sheath. FINDINGS: The left ventriculogram was performed in a standard 30-degree LUNDBERG view, reveals apical hypokinesis, but ejection fraction preserved at 55%. SELECTIVE CORONARY ANGIOGRAPHY: 1. Left main is with no significant angiographic disease. 2. Left anterior descending has 65 to 70% stenosis confirmed by intravascular ultrasound throughout the mid-proximal vessel. 3. Left circumflex has mild irregularities, but no flow-limiting stenosis. 4. Right coronary has mild irregularities, but no flow-limiting stenosis. PTCA STENT OF THE LAD: The stents used were 3.0 x 12, 3.0 x 9, 3.0 x 18. Result was 0% residual stenosis. All stents were integrity stents. OVERALL IMPRESSION: Successful percutaneous transluminal coronary angioplasty stent of the left anterior descending going from 70% initial stenosis to 0% residual. TRANSINT:[id number] Voice Confirmation ID: [id number] DOCUMENT ID: [id number] AMERICO BALDERAS MD at 1325 CC: [id number] DICTATION DATE: 01/09/18 1253 SALESPERSON FLOWERS: 01/09/18 1303 DIS IN 01/10/18 [place] [address]
[~2018-01-06 13:15] MED LIST: ADIPEX-P37.5 MG PO; AMBIEN10 MG PO; ASPIRIN81 MG PO; EFFEXOR75 MG PO; HYDROCODONE-APA1 TAB PO; IPRAT-ALBUT 0.5-3 ML UPD; KLONOPIN1 MG PO; LEVAQUIN750 MG PO; LISINOPRIL10 MG PO; VIBRAMYCIN 100100 MG PO
[2018-01-06 14:27] LABS: BASOPHILS 0.2 % (0-2); EOSINOPHILS 2.4 % (0-7); HEMATOCRIT 34.7 % (36.0-48.0); HEMOGLOBIN 11.1 g/dL (12-16); IMMATURE GRANULOCYTES 0.3 % (0-5); LYMPHOCYTES 25.3 % (15-50); MCH 28.5 pg (26.0-34.0); MCV 89.2 fL (80.0-100.0); MEAN PLATELET VOLUME 10.5 fL (7.4-10.4); NEUTROPHILS 60.8 % (40-80); PLATELET COUNT 162 10x3/uL (130-400); RBC 3.89 10x6/uL (4.00-5.40); RDW 15.7 % (11.5-14.5); WBC 8.7 10x3/uL (4.8-10.8)
[2018-01-06 14:55] LABS: ALBUMIN 2.9 g/dL (3.4-5.0); ANION GAP 13.1 mmol/L (8-16); BILIRUBIN - TOTAL 0.36 mg/dL (0.2-1.3); CALCIUM 9.4 mg/dL (8.5-10.1); CARBON DIOXIDE 24.2 mmol/L (21.0-32.0); CREATININE - SERUM 1.4 mg/dL (0.6-1.3); POTASSIUM - SERUM 4.3 mmol/L (3.5-5.1); PROTEIN - SERUM 6.9 g/dL (6.4-8.2)
[2018-01-06 15:41] VITALS: BP 116/60
[2018-01-06 18:08] VITALS: BP 111/54
[2018-01-07 01:20] VITALS: BP 123/54
[2018-01-07 03:03] LABS: UDS - AMPHET NEGATIVE QUAL (NEGATIVE); UDS - BARB NEGATIVE QUAL (NEGATIVE); UDS - BENZO NEGATIVE QUAL (NEGATIVE); UDS - COCAINE NEGATIVE QUAL (NEGATIVE); UDS - OPIATE POSITIVE QUAL (NEGATIVE); UDS - PCP NEGATIVE QUAL (NEGATIVE); UDS - THC NEGATIVE QUAL (NEGATIVE)
[2018-01-07 05:09] VITALS: BP 125/59
[2018-01-07 05:49] LABS: BASOPHILS 0.4 % (0-2); EOSINOPHILS 2.1 % (0-7); HEMATOCRIT 35.8 % (36.0-48.0); HEMOGLOBIN 11.8 g/dL (12-16); IMMATURE GRANULOCYTES 0.1 % (0-5); LYMPHOCYTES 24.2 % (15-50); MCH 28.7 pg (26.0-34.0); MEAN PLATELET VOLUME 10.1 fL (7.4-10.4); MONOCYTES 11.9 % (2-11); NEUTROPHILS 61.3 % (40-80); PLATELET COUNT 164 10x3/uL (130-400); RBC 4.11 10x6/uL (4.00-5.40); RDW 15.5 % (11.5-14.5); WBC 8.4 10x3/uL (4.8-10.8)
[2018-01-07 06:15] LABS: ANION GAP 12.9 mmol/L (8-16); CALCIUM 9.8 mg/dL (8.5-10.1); CARBON DIOXIDE 27.3 mmol/L (21.0-32.0); POTASSIUM - SERUM 4.2 mmol/L (3.5-5.1)
[2018-01-07 06:46] LABS: MCV 87.1 fL (80.0-100.0)
[2018-01-07 09:05] VITALS: BP 130/55
[2018-01-07 11:57] VITALS: BP 113/60
[2018-01-07 16:53] VITALS: BP 141/63
[2018-01-07 20:00] VITALS: BP 109/58
[2018-01-08 04:47] LABS: BASOPHILS 0.3 % (0-2); EOSINOPHILS 2.6 % (0-7); HEMATOCRIT 35.9 % (36.0-48.0); HEMOGLOBIN 11.8 g/dL (12-16); IMMATURE GRANULOCYTES 0.1 % (0-5); LYMPHOCYTES 35.5 % (15-50); MCH 28.9 pg (26.0-34.0); MCHC 32.9 g/dL (31.0-37.0); MEAN PLATELET VOLUME 10.7 fL (7.4-10.4); MONOCYTES 13.9 % (2-11); NEUTROPHILS 47.6 % (40-80); PLATELET COUNT 159 10x3/uL (130-400); RBC 4.08 10x6/uL (4.00-5.40); RDW 15.5 % (11.5-14.5); WBC 7.2 10x3/uL (4.8-10.8)
[2018-01-08 05:01] VITALS: BP 141/81
[2018-01-08 05:04] VITALS: BP 109/58; BMI 35.3
[2018-01-08 05:19] LABS: ALBUMIN 3.2 g/dL (3.4-5.0); ALKALINE PHOSPHATASE 45 U/L (46-116); ALT (SGPT) 30 U/L (10-68); BILIRUBIN - TOTAL 0.64 mg/dL (0.2-1.3); CALCIUM 10.2 mg/dL (8.5-10.1); CHLORIDE - SERUM 102 mmol/L (98-107); GLUCOSE 108 mg/dL (74-106); PHOSPHOROUS 4.1 mg/dL (2.5-4.9); PROTEIN - SERUM 7.8 g/dL (6.4-8.2); SODIUM 139 mmol/L (136-145); THYROID STIMULATING HORMONE 1.38 uIU/mL (0.36-3.74)
[2018-01-08 05:21] LABS: CALC OSMOLALITY 279 mosm/kg (275-300); CREATININE - SERUM 0.7 mg/dL (0.6-1.3); UREA NITROGEN 16 mg/dL (7-18); eGFR NON AFRICAN AMERICAN > 90 mL/min (90-120)
[2018-01-08 05:23] LABS: TROPONIN-I 22.693 ng/mL (0.000-0.060)
[2018-01-08 07:47] LABS: APTT 42.2 SECONDS (22.8-39.4); INR 1.11 (0.85-1.17); PROTIME 13.9 SECONDS (11.6-15.0)
[2018-01-08 08:57] VITALS: Ht 170.2 cm; Wt 102.3 kg
[2018-01-08 08:58] LABS: CKMB 5.1 U/L (0.0-3.6)
[2018-01-08 09:02] LABS: TROPONIN-I 21.626 ng/mL (0.000-0.060)
[2018-01-08 09:05] VITALS: BP 109/58
[2018-01-08 16:24] VITALS: BP 128/74
[2018-01-08 19:19] VITALS: BP 134/85
[2018-01-08 23:41] VITALS: BP 110/40
[2018-01-09] VITALS (13 sets, daily range): BP systolic 97–137; BP diastolic 42–78
[2018-01-09 05:21] LABS: BASOPHILS 0.2 % (0-2); EOSINOPHILS 3.1 % (0-7); HEMOGLOBIN 12.3 g/dL (12-16); IMMATURE GRANULOCYTES 0.3 % (0-5); LYMPHOCYTES 33.8 % (15-50); MCH 28.5 pg (26.0-34.0); MCHC 32.4 g/dL (31.0-37.0); MEAN PLATELET VOLUME 10.9 fL (7.4-10.4); MONOCYTES 11.7 % (2-11); NEUTROPHILS 50.9 % (40-80); RBC 4.32 10x6/uL (4.00-5.40); RDW 15.2 % (11.5-14.5); WBC 8.9 10x3/uL (4.8-10.8)
[2018-01-09 05:23] LABS: PLATELET COUNT 194 10x3/uL (130-400)
[2018-01-09 05:47] LABS: ALBUMIN 3.1 g/dL (3.4-5.0); ALKALINE PHOSPHATASE 48 U/L (46-116); ALT (SGPT) 33 U/L (10-68); BILIRUBIN - TOTAL 0.72 mg/dL (0.2-1.3); CARBON DIOXIDE 29.1 mmol/L (21.0-32.0); CHLORIDE - SERUM 100 mmol/L (98-107); CKMB 2.5 U/L (0.0-3.6); GLUCOSE 94 mg/dL (74-106); POTASSIUM - SERUM 4.1 mmol/L (3.5-5.1); PROTEIN - SERUM 7.9 g/dL (6.4-8.2); SODIUM 138 mmol/L (136-145)
[2018-01-09 06:03] LABS: CALC OSMOLALITY 279 mosm/kg (275-300); TROPONIN-I 16.941 ng/mL (0.000-0.060); UREA NITROGEN 24 mg/dL (7-18); eGFR NON AFRICAN AMERICAN 60 mL/min (90-120)
[2018-01-10] VITALS: BP 111/52
[2018-01-10 04:00] VITALS: BP 105/57
[2018-01-10 05:35] LABS: BASOPHILS 0.3 % (0-2); EOSINOPHILS 3.5 % (0-7); HEMATOCRIT 36.4 % (36.0-48.0); HEMOGLOBIN 11.8 g/dL (12-16); IMMATURE GRANULOCYTES 0.3 % (0-5); LYMPHOCYTES 32.7 % (15-50); MCH 28.4 pg (26.0-34.0); MCHC 32.4 g/dL (31.0-37.0); MCV 87.7 fL (80.0-100.0); MEAN PLATELET VOLUME 10.6 fL (7.4-10.4); MONOCYTES 9.8 % (2-11); NEUTROPHILS 53.4 % (40-80); PLATELET COUNT 184 10x3/uL (130-400); RBC 4.15 10x6/uL (4.00-5.40); WBC 7.9 10x3/uL (4.8-10.8)
[2018-01-10 05:51] LABS: CALC OSMOLALITY 277 mosm/kg (275-300); CALCIUM 10.1 mg/dL (8.5-10.1); CARBON DIOXIDE 30.3 mmol/L (21.0-32.0); CHLORIDE - SERUM 101 mmol/L (98-107); CREATININE - SERUM 0.8 mg/dL (0.6-1.3); GLUCOSE 102 mg/dL (74-106); POTASSIUM - SERUM 4.2 mmol/L (3.5-5.1); SODIUM 138 mmol/L (136-145); eGFR NON AFRICAN AMERICAN 78 mL/min (90-120)
[2018-01-10 05:59] LABS: UREA NITROGEN 17 mg/dL (7-18)
[2018-01-10] MEDS ORDERED: PLAVIX75 MG PO (07:48)
[2018-01-10] MEDS ORDERED: ZOCOR5 MG PO (07:49)
[2018-01-10] MEDS ORDERED: COREG6.25 MG PO (07:49)
[2018-01-10] MEDS ORDERED: ASPIRIN81 MG PO (07:50)
[2018-01-10 09:30] VITALS: BP 107/72
== END 2018-01-10 10:35 | disposition home or self-care (01) | DRG 248 ==
LOC: D.ER 13:15 → D.MS 18:20 → D.EDHOLD 18:20 → D.MS 20:18 → D.M2 01-09 12:58 → D.SDCHOLD 01-09 16:00 → D.M2 01-09 16:00
PROVIDERS: Family Medicine; Internal Medicine Nephrology
PROC: 02703DZ Dilation of Coronary Artery, One Artery with Intraluminal Device, Percutaneous Approach (ICD-10-PCS; principal; 2018-01-08)
PROC: 4A023N7 Measurement of Cardiac Sampling and Pressure, Left Heart, Percutaneous Approach (ICD-10-PCS; 2018-01-08)
PROC: B211YZZ Fluoroscopy of Multiple Coronary Arteries using Other Contrast (ICD-10-PCS; 2018-01-08)
PROC: B215YZZ Fluoroscopy of Left Heart using Other Contrast (ICD-10-PCS; 2018-01-08)
DX: I13.0 Hypertensive heart and chronic kidney disease with heart failure and stage 1 through stage 4 chronic kidney disease, or unspecified chronic kidney disease (principal); J96.01 Acute respiratory failure with hypoxia; I50.21 Acute systolic (congestive) heart failure; I21.4 Non-ST elevation (NSTEMI) myocardial infarction; N17.9 Acute kidney failure, unspecified; I27.20 Pulmonary hypertension, unspecified; J30.9 Allergic rhinitis, unspecified; D50.9 Iron deficiency anemia, unspecified; N18.9 Chronic kidney disease, unspecified; F41.9 Anxiety disorder, unspecified; F32.9 Major depressive disorder, single episode, unspecified; G89.4 Chronic pain syndrome; K21.9 Gastro-esophageal reflux disease without esophagitis; I25.10 Atherosclerotic heart disease of native coronary artery without angina pectoris